=== PATIENT | female | born 1950 | race Caucasian/White ===

== ENCOUNTER → 2016-05-31 | Outpatient (CLI) | payer BC ==
[2016-05-31 07:38] LABS: Basophils # (auto) 0 uL; Basophils % (auto) 0.6 % (0.0-2.0); Eosinophils # (auto) 0.2 uL; Hematocrit 44.7 % (36.0-46.0); Hemoglobin 14.1 g/dL (12.2-16.2); Lymphocytes # (auto) 1.9 uL; Lymphocytes % (auto) 26.3 % (10.0-50.0); Mean Corpuscular Hemoglobin 29.4 pg (28.0-32.0); Mean Corpuscular Hgb Conc. 31.6 g/dL (32.0-36.0); Mean Corpuscular Volume 92.8 fL (80.0-100.0); Monocytes # (auto) 0.4 uL; Monocytes % (auto) 5.4 % (0.0-12.0); Neutrophils # (auto) 4.7 uL; Neutrophils % (auto) 64.7 % (37.0-80.0); Platelet Count (auto) 303 10^3/uL (140-450); Red Cell Distribution Width 13.4 % (11.6-16.0); White Blood Cell 7.3 10^3/uL (4.4-10.8)
[2016-05-31 07:43] LABS: Urine Bilirubin Negative (Negative); Urine Blood TRACE /uL (Negative); Urine Color Yellow (Yellow); Urine Glucose Normal (Normal); Urine Ketone Negative (Negative); Urine Nitrite Negative (Negative); Urine RBC <1 /hpf (0 - 4); Urine Squamous Epithelial Cell FEW /hpf (<5); Urine Urobilinogen Normal (Negative); Urine pH 5.5 (5.0-8.0)
[2016-05-31 08:41] LABS: Albumin 3.7 g/dL (3.4-5.0); Bilirubin, Total 0.4 mg/dL (0.2-1.0); Calcium 9.4 mg/dL (8.5-10.1); Potassium 3.7 mmol/L (3.5-5.1); Total Protein 7.8 g/dL (6.4-8.2)
== END | disposition home or self-care (01) ==
LOC: LAB 06:37
DX: E78.5 Hyperlipidemia, unspecified (principal)
CPT/HCPCS: 36415; 80053; 80061; 81001; 84443; 85025

== ENCOUNTER 2016-12-31 04:41 | Inpatient (IN) | payer BC, MEDICARE ==
[~2016-12-31] VITALS: Ht 165.1 cm; Wt 71.7 kg
[2016-12-31 06:26] LABS: Urine Bilirubin Negative (Negative); Urine Blood 3+ /uL (Negative); Urine Ca Oxalate Crystal FEW (None Seen); Urine Color Red (Yellow); Urine Glucose Normal (Normal); Urine Ketone TRACE (Negative); Urine Mucus FEW (None Seen); Urine Nitrite Negative (Negative); Urine RBC 1171 /hpf (0 - 4); Urine Squamous Epithelial Cell MOD /hpf (<5); Urine Urobilinogen Normal (Negative); Urine pH 5.5 (5.0-8.0)
[2016-12-31 07:16] LABS: Basophils # (auto) 0 uL; Basophils % (auto) 0.2 % (0.0-2.0); CONDITION Y; Eosinophils # (auto) 0 uL; Eosinophils % (auto) 0.1 % (0.0-7.0); Hematocrit 42.6 % (36.0-46.0); Hemoglobin 14.3 g/dL (12.2-16.2); Lymphocytes # (auto) 1.1 uL; Lymphocytes % (auto) 8.6 % (10.0-50.0); Mean Corpuscular Hemoglobin 31.1 pg (28.0-32.0); Mean Corpuscular Hgb Conc. 33.7 g/dL (32.0-36.0); Mean Corpuscular Volume 92.3 fL (80.0-100.0); Mean Platelet Volume 9.4 fL (7.4-10.4); Monocytes # (auto) 0.4 uL; Monocytes % (auto) 2.8 % (0.0-12.0); Neutrophils # (auto) 11.2 uL; Neutrophils % (auto) 88.3 % (37.0-80.0); Platelet Count (auto) 334 10^3/uL (140-450); Red Cell Distribution Width 13.7 % (11.6-16.0); White Blood Cell 12.6 10^3/uL (4.4-10.8)
[2016-12-31 07:34] LABS: Albumin 3.4 g/dL (3.4-5.0); Anion Gap 8 (5-15); Aspartate Aminotransferase 27 U/L (15-37); BUN/Creatinine Ratio 21.5; Blood Urea Nitrogen 20 mg/dL (7-18); Calcium 9.5 mg/dL (8.5-10.1); Carbon Dioxide 30 mmol/L (21-32); Chloride 104 mmol/L (98-107); GFR African American 78 mL/min; GFR Non-African American 64 mL/min; Glucose 136 mg/dL (74-106); Magnesium 2.4 mg/dL (1.6-2.6); Potassium 4.3 mmol/L (3.5-5.1); Sodium 142 mmol/L (136-145)
[2016-12-31 07:39] LABS: Alkaline Phosphatase 92 U/L (45-117); Bilirubin, Total 0.4 mg/dL (0.2-1.0); Total Protein 7.5 g/dL (6.4-8.2)
[2016-12-31] MEDS ORDERED: KETOROLAC TROMETH 30 MG/ML 1ML VIAL IV ONE (08:15)
[2016-12-31] MEDS ORDERED: METOCLOPRAMIDE HCL 5MG/ml INJ 2ml VIAL IV ONE (08:15)
[2016-12-31] MEDS ORDERED: cefTRIAXone 1GM/50ML D5W 50 ML IV ONE (08:45)
[2016-12-31] MEDS ORDERED: LEVOFLOXACIN 500MG 100 ML IV ONE (10:30)
[2016-12-31] MEDS ORDERED: DOCUSATE SOD 100 MG CAP PO PRN (10:45)
[2016-12-31] MEDS ORDERED: ONDANSETRON HCL 4 MG/2 ML VIAL IV PRN (10:45)
[2016-12-31] MEDS ORDERED: TEMAZEPAM 15 MG CAP PO PRN (10:45)
[2016-12-31] MEDS ORDERED: ACETAMINOPHEN 325 MG TAB PO PRN (10:45)
[2016-12-31] MEDS ORDERED: HYDROcodone-ACET 5/325MG TAB PO PRN (10:45)
[2016-12-31] MEDS ORDERED: DEXTROSE (50%) 50ML SYRG IV PRN (10:45)
[2016-12-31] MEDS: SODIUM CHLORIDE 0.9% 1,000 ML IV SCH ×2 (10:49→11:58)
[2016-12-31] MEDS: PROPRANOLOL HCL 20 MG TAB PO SCH ×2 (11:00→22:21)
[2016-12-31] MEDS: FAMOTIDINE 20 MG TAB PO SCH ×2 (11:12→22:22)
[2016-12-31] MEDS: InsuLIN REG 1unit/0.01ml Soln (100units/ml) SC SCH ×3 (11:30→22:00)
[2016-12-31 11:46] VITALS: BP 108/64
[2016-12-31 11:48] VITALS: BP 108/64
[2016-12-31] MEDS: ACCU-CHEK COMFORT CURVE STRIP VI SCH ×3 (11:58→22:22)
[2016-12-31 13:00] VITALS: BP 117/66
[2016-12-31] MEDS ORDERED: MORPHINE SULF INJ 2 MG/ML SYRINGE 1ML ONE (13:03)
[2016-12-31] MEDS ORDERED: IPRATROPIUM BROM 0.5 MG/2.5ML INH SOL ONE (13:14)
[2016-12-31] MEDS: IPRATROPIUM BROM 0.5 MG/2.5ML INH SOL NEB SCH ×2 (13:21→18:29)
[2016-12-31] MEDS: MORPHINE SULF INJ 2 MG/ML SYRINGE 1ML IV PRN ×3 (13:32→22:20)
[2016-12-31] MEDS ORDERED: ALPR0.254 PO (15:14)
[2016-12-31] MEDS ORDERED: PROP60CA8 PO (15:14)
[2016-12-31] MEDS ORDERED: ALBU1AER4 IN (15:14)
[2016-12-31] MEDS ORDERED: HYDR12.56 PO (15:14)
[2016-12-31] MEDS ORDERED: ROSU1TAB4 PO (15:14)
[2016-12-31] MEDS ORDERED: GABA-497 PO (15:14)
[2016-12-31] MEDS ORDERED: FLUT250M2 INH (15:14)
[2016-12-31] MEDS ORDERED: NAP500T PO (15:14)
[2016-12-31] MEDS ORDERED: LEVO50TA7 PO (15:14)
[2016-12-31] MEDS: GABAPENTIN 300 MG CAP PO SCH ×2 (15:19→22:22)
[2016-12-31 17:00] VITALS: BP 110/55
[2016-12-31] MEDS ORDERED: ATORVASTATIN 20 MG TAB PO SCH (22:00)
[2016-12-31 22:03] VITALS: BP 121/65
[2016-12-31] MEDS: NAPROXEN 500 MG TAB PO SCH (22:22)
[2017-01-01] MEDS: IPRATROPIUM BROM 0.5 MG/2.5ML INH SOL NEB SCH ×3 (00:17→11:14)
[2017-01-01 05:08] VITALS: BP 118/48
[2017-01-01] MEDS: InsuLIN REG 1unit/0.01ml Soln (100units/ml) SC SCH ×2 (06:09→11:30)
[2017-01-01] MEDS: ACCU-CHEK COMFORT CURVE STRIP VI SCH ×2 (06:09→11:30)
[2017-01-01] MEDS: GABAPENTIN 300 MG CAP PO SCH (06:09)
[2017-01-01] MEDS ORDERED: LEVOTHYROXINE SODIUM 50 MCG TAB PO SCH (07:00)
[2017-01-01 09:11] VITALS: BP 118/52
[2017-01-01 09:47] VITALS: BP 118/52
[2017-01-01] MEDS ORDERED: MULTIPLE VITAMIN TAB PO SCH (10:00)
[2017-01-01] MEDS: PROPRANOLOL HCL 20 MG TAB PO SCH (10:00)
[2017-01-01] MEDS: NAPROXEN 500 MG TAB PO SCH (10:00)
[2017-01-01] MEDS ORDERED: PATIENTS OWN MEDICATION IN SCH ×2 (10:00)
[2017-01-01] MEDS ORDERED: LEVOFLOXACIN 500MG 100 ML IV SCH (10:00)
[2017-01-01] MEDS ORDERED: HCTZ 25 MG TAB PO SCH (10:00)
[2017-01-01] MEDS ORDERED: PATIENTS OWN MEDICATION PO SCH ×2 (10:00)
[2017-01-01] MEDS: FAMOTIDINE 20 MG TAB PO SCH (11:05)
== END 2017-01-01 13:00 | disposition home or self-care (01) | DRG 694 ==
LOC: ER 04:43 → OVERFLOW 04:44 → CENTRAL 11:19 → ER 11:19 → CENTRAL 11:44
PROVIDERS: ADMIT Internal Medicine; ATTEND Internal Medicine
DX: N13.2 Hydronephrosis with renal and ureteral calculous obstruction (principal); E11.22 Type 2 diabetes mellitus with diabetic chronic kidney disease; J44.9 Chronic obstructive pulmonary disease, unspecified; K57.30 Diverticulosis of large intestine without perforation or abscess without bleeding; N39.0 Urinary tract infection, site not specified; E03.9 Hypothyroidism, unspecified; E11.65 Type 2 diabetes mellitus with hyperglycemia; D35.02 Benign neoplasm of left adrenal gland; F17.210 Nicotine dependence, cigarettes, uncomplicated; N18.2 Chronic kidney disease, stage 2 (mild); E78.5 Hyperlipidemia, unspecified; Z88.0 Allergy status to penicillin; Z87.442 Personal history of urinary calculi; Z90.710 Acquired absence of both cervix and uterus; Z80.8 Family history of malignant neoplasm of other organs or systems; Z82.49 Family history of ischemic heart disease and other diseases of the circulatory system
CPT/HCPCS: 36415; 74176; 80053; 81001; 82962; 83036; 83690; 83735; 84484; 85025; 87086; 93005; 94640; 96365; 96367; 96375; J0696; J1885; J1956